=== PATIENT | female | born 1975 | race Two or more races ===

== ENCOUNTER 2025-03-14 10:45 | Inpatient (IN) | payer OTHER ==
[~2025-03-14] VITALS: Ht 157.5 cm; Wt 74.4 kg
[2025-03-14 15:14] LABS: RH NEGATIVE
[2025-03-14 15:25] VITALS: BP 133/80
[2025-03-14 15:27] VITALS: BP 110/70
[2025-03-19] MEDS ORDERED: CEFAZOLIN SODIUM 1,000 MG VIAL ONE (10:24)
[2025-03-19] MEDS ORDERED: CEFAZOLIN SODIUM 1,000 MG VIAL IV ONE (13:45)
[2025-03-19] MEDS ORDERED: SUGAMMADEX SODIUM 200 MG/2 ML VIAL IV ONE (14:25)
[2025-03-19] MEDS ORDERED: MORPHINE SULFATE 4 MG/ML CARTRIDGE IV SCH (17:00)
[2025-03-19 18:43] VITALS: BP 133/80
[2025-03-19] MEDS ORDERED: KETOROLAC TROMETHAMINE 60 MG VIAL IM ONE (21:00)
[2025-03-20 00:30] VITALS: BP 129/78
[2025-03-20 04:00] VITALS: BP 117/74
[2025-03-20] MEDS ORDERED: OxyCODONE HCL 5 MG TABLET (ROXICODONE) PO SCH (05:00)
[2025-03-20 06:20] LABS: BASO % 0.1 % (0.1-1.2); EOS # 0.01 (0.04-0.54); EOS % 0.1 % (0.7-7.0); LYMPH # 1.17 (1.18-3.74); LYMPH % 15.5 % (19.3-53.1); MEAN PLATELET VOLUME 11.80 fl (9.4-12.4); MONO # 0.54 (0.24-0.82); MONO % 7.2 % (4.7-12.5); NEUT # 5.78 (1.56-6.13); NEUT % 76.8 % (34.0-71.1); RED CELL DISTRIBUTION WIDTH 14.0 % (11.6-14.4)
[2025-03-20 07:09] LABS: ALT/SGPT 13.0 U/L (12-78); AST/SGOT 19.0 U/L (15-37); BILIRUBIN TOTAL 0.49 mg/dL (0.3-1.2); BUN CREA RATIO 8.0 (7.0-25.0); CREATININE SERUM 0.48 mg/dL (0.55-1.02); GFR 137.46; GLOBULINA 3.1 G/DL (2.4-3.5); GLUCOSE FASTING 86.0 mg/dL (65-100); OSMOLALITY SERUM 276.0 MOSM/KG (275-295)
[2025-03-20] MEDS ORDERED: SIMETHICONE 125 MG CAPSULE PO SCH (08:00)
[2025-03-20 08:28] VITALS: BP 98/63
[2025-03-20] MEDS ORDERED: DOCUSATE SODIUM 100MG CAP PO SCH (09:00)
[2025-03-20 18:41] VITALS: BP 96/63
[2025-03-21] VITALS: BP 107/69
[2025-03-21 08:20] VITALS: BP 110/70
[2025-03-21 16:41] VITALS: BP 101/66
[2025-03-22 01:14] VITALS: BP 114/74
[2025-03-22 08:38] VITALS: BP 109/76
== END 2025-03-22 09:51 | disposition home or self-care (01) | DRG 743 ==
LOC: O/R 03-19 09:00 → OB/GYN 03-19 09:00
PROVIDERS: ADMIT Obstetrics & Gynecology; ATTEND Obstetrics & Gynecology
PROC: 0UT90ZZ Resection of Uterus, Open Approach (ICD-10-PCS; principal; 2025-03-19 10:45)
DX: D25.1 Intramural leiomyoma of uterus (principal); N80.03 Adenomyosis of the uterus; N92.1 Excessive and frequent menstruation with irregular cycle; N92.5 Other specified irregular menstruation